=== PATIENT | female | born 1970 | race American Indian/Alaskan Native ===

== ENCOUNTER 2018-07-18 14:27 | Emergency (ER) | payer OTHER ==
[2018-07-18 14:57] VITALS: BP 147/87
--- NOTE | 2018-07-18 14:58 | Emergency Department Report ---
Chief Complaint: Extremity Injury, Lower Stated Complaint: R ANKLE PAIN Time Seen by Provider: 07/18/18 14:56 - HPI History of Present Illness: NO FALL NO TRAUMA STARTED LAST WEEK CC R LATERAL FOOT PAIN. PMH OBESE 2 HERNIATED DISC IN THE NEXT TIA 2006 [place] 2008 RX PAIN PILLS PSH HYSTERECTOMY MSE COMPLETED MSE screening note: Focused history and physical exam performed. Due to findings the following was ordered: ED Disposition for MSE Condition: Stable
[2018-07-18 15:45] LABS: Hematocrit 40.2 % (30.3-42.9); Mean Corpuscular HGB Conc 32 % (30-34); Mean Corpuscular Volume 90 fl (79-97); Platelet Count 418 K/mm3 (140-440); Red Blood Count 4.49 M/mm3 (3.65-5.03); Red Cell Distribution Width 16.2 % (13.2-15.2)
[2018-07-18 16:08] LABS: BUN/Creatinine Ratio 9; Blood Urea Nitrogen 8 mg/dL (7-17); Calcium 9.2 mg/dL (8.4-10.2); Hemolysis Index 22
--- NOTE | 2018-07-18 16:16 | XRay Report ---
PROCEDURE: XR FOOT 3+V RT TECHNIQUE: AP, lateral, and oblique portable views of the right foot HISTORY: PAIN R SIDE OF FOOT COMPARISONS: None . FINDINGS: There is no evidence for acute fracture or dislocation. No soft tissue swelling or radiopaque foreign bodies are seen. Bony mineralization is normal. Joint spaces are maintained. IMPRESSION: No acute soft tissue or bony abnormality noted. This document is electronically signed by Charissa Mendez MD., Jul 18 2018 04:14:57 PM ET
[2018-07-18] MEDS ORDERED: IBUPROFEN PO ONE (16:55)
--- NOTE | 2018-07-18 16:56 | Emergency Department Report ---
HPI - General Chief Complaint: Extremity Injury, Lower Time Seen by Provider: 07/18/18 14:56 - HPI HPI: 47 y o female presents to Ed ED Past Medical Hx - Past Medical History Additional medical history: Lumbar herniated disc - Surgical History Additional Surgical History: right knee reconstruction, Uterine myomectomy x 2, hysterectomy, lumbar facet injection, - Social History Smoking Status: Never Smoker Substance Use Type: None - Medications Home Medications: Home Medications Medication Instructions Recorded Confirmed Last Taken Type ALBUTEROL Inhaler (OR & NICU) 2 puff IH QID PRN 01/16/13 01/16/13 Unknown History [Proair] Hydrocodone Bit/Acetaminophen 1 tab PO Q6H PRN #20 tablet 01/16/13 Unknown Rx [Lortab 10-500 mg] diazePAM TAB [Valium] 5 mg PO Q8H PRN #21 tab 01/16/13 Unknown Rx predniSONE [Deltasone] 20 mg PO TID #15 tablet 01/16/13 Unknown Rx Cyclobenzaprine [Flexeril] 10 mg PO QHS PRN #15 tablet 07/18/18 Unknown Rx Ibuprofen [Motrin] 800 mg PO Q8HR #30 tablet 07/18/18 Unknown Rx ED Review of Systems ROS: Stated complaint: R ANKLE PAIN Other details as noted in HPI Comment: All other systems reviewed and negative Physical Exam - Physical Exam Vital Signs: Vital Signs 07/18/18 14:56 Temperature 98.1 F Pulse Rate 87 Respiratory 20 Rate Blood Pressure 147/87 [Right] O2 Sat by Pulse 97 Oximetry Physical Exam: GENERAL: Alert and oriented x3, no apparent distress, Normal Gait, atraumatic. HEAD: Head is normocephalic and a-traumatic. NECK: Supple. Non edematous, No lymphadenopathy or thyromegaly. No C-spine tenderness, full range of motion LUNGS: Symetrical with respiration, No wheezing, no rales or crackles, CTAB. HEART: S1, S2 present, regular rate and rhythm without murmur, no rubs, no gallops. Non tender to palpation BACK: Full range of motion, no spinal tenderness, Tenderness to palpation of the trapezius muscles and latissimus dorsi muscles of the back EXTREMITIES/MUSCULOSKELETAL: No cyanosis, clubbing, rash, lesions or edema. Full ROM bilaterally. UE/LE Pulses 2+ bilaterally. LE and UE 5+ strength bilaterally, a NEUROLOGIC: The patient is cooperative with no focal neurologic deficits. SKIN: Warm and dry, No lesions, No ulceration or induration present. ED Course Vital Signs 07/18/18 14:56 Temperature 98.1 F Pulse Rate 87 Respiratory 20 Rate Blood Pressure 147/87 [Right] O2 Sat by Pulse 97 Oximetry ED Medical Decision Making - Lab Data Result diagrams: 07/18/18 15:22 07/18/18 15:20 - Radiology Data Radiology results: report reviewed, image reviewed PROCEDURE: XR FOOT 3+V RT TECHNIQUE: AP, lateral, and oblique portable views of the right foot HISTORY: PAIN R SIDE OF FOOT COMPARISONS: None . FINDINGS: There is no evidence for acute fracture or dislocation. No soft tissue swelling or radiopaque foreign bodies are seen. Bony mineralization is normal. Joint spaces are maintained. IMPRESSION: No acute soft tissue or bony abnormality noted. This document is electronically signed by Charissa Mendez MD., Jul 18 2018 04:14:57 PM ET Transcribed By: [facility] Dictated By: CHARISSA MENDEZ MD Electronically Authenticated By: CHARISSA MENDEZ MD Signed Date/Time: 07/18/18 5748 Critical care attestation.: If time is entered above; I have spent that time in minutes in the direct care of this critically ill patient, excluding procedure time. ED Disposition Clinical Impression: Arthralgia of ankle, right, Ankle pain Disposition: [id number] TO HOME OR SELFCARE Is pt being admited?: No Does the pt Need Aspirin: No Condition: Stable Instructions: Ankle Sprain (ED), Arthralgia (ED) Additional Instructions: Make sure to follow up with the primary care physician as discussed. Take all your medications as you've been prescribed. If you have any worsening symptoms or develop new symptoms please return to ED immediately. Prescriptions: Cyclobenzaprine [Flexeril] 10 mg PO QHS PRN #15 tablet PRN Reason: Muscle Spasm Ibuprofen [Motrin] 800 mg PO Q8HR #30 tablet Referrals: AKI ANDERSON MD [Primary Care Provider] - 3-5 Days VENECIA RESTREPO MD [Staff Physician] - 3-5 Days Forms: Work/School Release Form(ED) Time of Disposition: 17:23
== END 2018-07-18 17:57 | disposition home or self-care (01) ==
LOC: ED 14:27
DX: M25.571 Pain in right ankle and joints of right foot (principal); Z90.710 Acquired absence of both cervix and uterus; Z98.890 Other specified postprocedural states; Z88.6 Allergy status to analgesic agent
CPT/HCPCS: 36415; 80048; 84550; 85027